=== PATIENT | male | born 1950 | race Caucasian/White ===

== ENCOUNTER 2019-07-07 08:13 | Outpatient (CLI) | payer MEDICARE, SELFPAY ==
--- NOTE | 2019-07-07 | ECHO_ITS ---
Patient Info Name: Aly Wu Age: 69 years : 1950 Gender: Male Ht: 72 in Wt: 290 lbs BSA: 2.64 m2 HR: 92 bpm BP: 147 / 75 mmHg Technical Quality: Good Exam Date: 07/07/2019 9:06 AM Exam Location: [facility] Patient Status: Outpatient Admit Date: 07/07/2019 Staff Ordering Physician: Neil Armenta DO Assistant Men'S Soccer Coach: Yuni Hernadez RDCS Attending Provider: Neil Armenta DO Referring Physician: Geovany GIRARD; Exam Type: CA echo doppler color flow Study Info Indications - kaminski Complete two-dimensional, color flow and Doppler transthoracic echocardiogram is performed. Summary 1. Left ventricular chamber dimension is moderately enlarged. 2. Left ventricular systolic function is mildly reduced, estimated at 45-50%. 3. The left ventricular diastolic function is grade I diastolic dysfunction. 4. E/e' 10 is mildly elevated. 5. Global longitudinal strain is abnormal at -10.3%. 6. Left atrial chamber dimension is mildly enlarged. 7. There is moderate aortic valve sclerosis. 8. Based on valve area and gradients there is mild aortic stenosis. 9. There is mild aortic valve stenosis with a peak velocity of 226 cm/s, mean gradient of 12 mmHg, and aortic valve area of 1.8 cm2. 10. There is trace mitral valve regurgitation. 11. No pulmonary hypertension, estimated pulmonary arterial systolic pressure is 25 mmHg. 12. There is trivial pericardial effusion. Left Ventricle E/e' 10 is mildly elevated. Global longitudinal strain is abnormal at -10.3%. Left ventricular chamber dimension is moderately enlarged. Left ventricular systolic function is mildly reduced, estimated at 45-50%. The left ventricular diastolic function is grade I diastolic dysfunction. Right Ventricle Right ventricular chamber dimension is normal. Right ventricular systolic function is normal. Left Atria Left atrial chamber dimension is mildly enlarged. Right Atria Right atrial chamber dimension is normal. Aortic Valve Based on valve area and gradients there is mild aortic stenosis. The aortic valve is not well visualized. There is moderate aortic valve sclerosis. There is mild aortic valve stenosis with a peak velocity of 226 cm/s, mean gradient of 12 mmHg, and aortic valve area of 1.8 cm2. There is no aortic valve regurgitation. Pulmonic Valve There is no pulmonic regurgitation. Mitral Valve There is no mitral valve stenosis. There is trace mitral valve regurgitation. Tricuspid Valve There is no tricuspid valve regurgitation. No pulmonary hypertension, estimated pulmonary arterial systolic pressure is 25 mmHg. Pericardium/Pleural There is trivial pericardial effusion. Inferior Vena Cava Normal inferior vena cava with >50% collapse upon inspiration consistent with normal right atrial pressure, 5 mmHg. Aorta The aortic root size at the sinus of Valsalva is not well visualized. Left Ventricular Outflow Tract Name Value Normal LVOT 2D LVOT Diameter 2.1 cm LVOT Doppler LVOT Peak Gradient 6 mmHg LVOT Mean Gradient 4 mmHg LVOT VTI
--- NOTE | ~2019-07-07 | NM_ITS ---
EXAMINATION: NM roseann stress w perfusion DATE: 07/07/2019 12:39 INDICATION: Mitral valve prolapse. Preop. TECHNIQUE: Rest images were obtained following intravenous administration of 8.7 mCi Tc99m tetrofosmi n (Myoview). The patient was infused intravenously with Lexiscan (regadenoson). Then, 28.2 mCi Tc99m tetrofosmin (Myoview) was administered intravenously, and stress images were obtained. Data was recon structed into short axis and horizontal and vertical long axis SPECT images. Gated SPECT images were also obtained. COMPARISON: None. FINDINGS: There is a small, mild, fixed perfusion defect in left ventricular apex, consistent with in farct. No reversible component to suggest ischemia. There is no segmental wall motion abnormality. Left ventricular ejection fraction measures 50%. IMPRESSION: 1. 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 2. Normal left ventricular ejection fraction measuring 50%. Reviewed, dictated and finalized at location A. [employer]
--- NOTE | 2019-07-07 08:34 | EST_ITS ---
Patient Info Name: Aly Wu Age: 69 years : 1950 Gender: Male Ht: 72 in Wt: 290 lbs BSA: 2.64 m2 Exam Date: 07/07/2019 11:01 AM Exam Location: [facility] Stress Patient Status: Outpatient Admit Date: 07/07/2019 Staff Ordering Physician: Neil Armenta DO Attending Provider: Neil Armenta DO Exercise Technologist: Basilia Strauss RDCS Exercise Physician: Neil Armenta DO Exam Type: CA stress roseann w NM Study Info Indications R06.09 - Other forms of dyspnea A regadenoson stress test was performed. Summary 1. 1. Negative lexiscan stress test for ischemic ST changes by ECG criteria. 2. 2. Stable hemodynamics throughout the test. 3. 3. Nuclear scan to follow and will be reported separately. Please correlate with it. 4. 4. Patient informed of the above results. Protocol: Lexiscan Stress ECG Details Stage: REST Duration (min): 1 min : 2 sec HR (bpm): 85 SBP (mmHg): 127 DBP (mmHg): 83 Stage: REST Duration (min): 5 min : 55 sec HR (bpm): 88 SBP (mmHg): 127 DBP (mmHg): 83 Stage: REST Duration (min): 6 min : 36 sec HR (bpm): 87 SBP (mmHg): 127 DBP (mmHg): 83 Stage: STAGE 1 Duration (min): 1 min : 0 sec HR (bpm): 95 SBP (mmHg): 140 DBP (mmHg): 76 Stage: RECOVERY Duration (min): 1 min : 0 sec HR (bpm): 98 SBP (mmHg): 133 DBP (mmHg): 67 Stage: RECOVERY Duration (min): 2 min : 0 sec HR (bpm): 97 SBP (mmHg): 133 DBP (mmHg): 67 Stage: RECOVERY Duration (min): 3 min : 0 sec HR (bpm): 93 SBP (mmHg): 114 DBP (mmHg): 66 Stage: RECOVERY Duration (min): 3 min : 3 sec HR (bpm): 95 SBP (mmHg): 114 DBP (mmHg): 66 Rest HR: 87 bpm Peak HR: 99 bpm Rest Sys BP: 127 mmHg Peak Sys BP: 140 mmHg Max Pred HR: 149 bpm % Max Pred HR: 66 % Target HR: 127 bpm Max RPP: 13,860 bpm*mmHg Termination Reason: Completed protocol Cardiac Symptoms: Shortness of breath Total Time: 1 min : 0 sec Rest Aguilar BP: 83 mmHg Peak Aguilar BP: 76 mmHg Total Dose: 0.4 mg Resting ECG Sinus rhythm, frequent PVC's, IVCD, cannot r/o septal infarct, age indeterminate, borderline ST abnormality- ant/inf leads. Stress ECG No ST changes. Arrhythmias None. Report Signatures
== END 2019-07-07 08:14 | disposition home or self-care (01) ==
PROVIDERS: Visit Provider Internal Medicine Cardiovascular Disease
DX: I34.1 Nonrheumatic mitral (valve) prolapse (principal); R06.09 Other forms of dyspnea
CPT/HCPCS: 78452; 93017; 93306; A9502; J2785